=== PATIENT | female | born 1970 | race African-American/Black ===

== ENCOUNTER 2020-11-20 06:51 | Emergency (ER) | payer OTHER ==
[~2020-11-20] VITALS: Ht 162.6 cm; Wt 61.0 kg
[2020-11-20] MEDS ORDERED: ACETAMINOPHEN WITH CODEINE 300/30MG TABLET PO ONE (07:45)
[2020-11-20] MEDS ORDERED: IBUP-2028 PO (08:50)
[2020-11-20 09:52] VITALS: BP 127/73
== END 2020-11-20 09:55 | disposition home or self-care (01) ==
LOC: ER 06:51
DX: S52.501A Unspecified fracture of the lower end of right radius, initial encounter for closed fracture (principal); M25.531 Pain in right wrist; V03.90XA Pedestrian on foot injured in collision with car, pick-up truck or van, unspecified whether traffic or nontraffic accident, initial encounter; Y93.B9 Activity, other involving muscle strengthening exercises; Y92.410 Unspecified street and highway as the place of occurrence of the external cause
CPT/HCPCS: 29105; 73100; 73560; 99284; A4565